=== PATIENT | female | born 1980 | race Caucasian/White ===

== ENCOUNTER 2019-01-24 06:00 | Outpatient (RCR) | payer OTHER, SELFPAY | END 2019-02-23 00:01 | LOC: SPT 06:00 | PROVIDERS: Family Provider Family Medicine; Visit Provider Family Medicine | DX: M54.5 Low back pain (principal); M54.2 Cervicalgia | CPT/HCPCS: 97110 ×5; 97112; 97140 ×5; 97164 ==

== ENCOUNTER 2019-02-24 06:00 | Outpatient (RCR) | payer OTHER, SELFPAY | END 2019-03-26 23:59 | disposition home or self-care (01) | LOC: SPT 06:00 | PROVIDERS: Family Provider Family Medicine; Referring Provider Family Medicine; Visit Provider Family Medicine | DX: M54.5 Low back pain (principal); M54.2 Cervicalgia | CPT/HCPCS: 97110; 97140 ==

== ENCOUNTER 2019-03-27 06:00 | Outpatient (RCR) | payer OTHER, SELFPAY | END 2019-04-24 23:59 | disposition home or self-care (01) | LOC: SPT 06:00 | PROVIDERS: Family Provider Family Medicine; PCP Family Medicine; Referring Provider Family Medicine; Visit Provider Family Medicine | DX: M54.5 Low back pain (principal); M54.2 Cervicalgia | CPT/HCPCS: 97110; 97112 ==

== ENCOUNTER 2019-04-25 06:00 | Outpatient (RCR) | payer OTHER, SELFPAY | END 2019-05-25 23:59 | disposition home or self-care (01) | LOC: SPT 06:00 | PROVIDERS: Family Provider Family Medicine; PCP Family Medicine; Referring Provider Family Medicine; Visit Provider Family Medicine | DX: M54.5 Low back pain (principal); M54.2 Cervicalgia | CPT/HCPCS: 97112; 97140 ==

== ENCOUNTER 2019-07-30 15:50 | Outpatient (CLI) | payer OTHER, SELFPAY ==
[2019-07-30 17:07] LABS: D Dimer 0.44 ug/mIFEU (0-0.59)
[2019-07-30 17:41] LABS: NT Pro B Type Natriuretic Pept 175 pg/mL (0-125)
== END 2019-07-30 15:51 | disposition home or self-care (01) ==
LOC: LAB 15:52
PROVIDERS: PCP Family Medicine; Visit Provider Family Medicine
DX: R06.02 Shortness of breath (principal)
CPT/HCPCS: 83880; 85378

== ENCOUNTER → 2019-12-23 08:14 | Outpatient (BNVA) | payer OTHER, SELFPAY | PROVIDERS: PCP Family Medicine; Referring Provider Family Medicine; Visit Provider Internal Medicine | DX: E11.40 Type 2 diabetes mellitus with diabetic neuropathy, unspecified (principal); E11.65 Type 2 diabetes mellitus with hyperglycemia; E66.01 Morbid (severe) obesity due to excess calories; Z68.43 Body mass index [BMI] 50.0-59.9, adult; E78.00 Pure hypercholesterolemia, unspecified; I10 Essential (primary) hypertension | CPT/HCPCS: 99204 ==

== ENCOUNTER → 2020-03-31 08:17 | Outpatient (BNVA) | payer OTHER, SELFPAY | PROVIDERS: PCP Family Medicine; Visit Provider Internal Medicine | DX: E11.40 Type 2 diabetes mellitus with diabetic neuropathy, unspecified (principal); E11.65 Type 2 diabetes mellitus with hyperglycemia; E66.01 Morbid (severe) obesity due to excess calories; Z68.43 Body mass index [BMI] 50.0-59.9, adult | CPT/HCPCS: 99214 ==

== ENCOUNTER 2020-09-18 10:23 | Outpatient (CLI) | payer BC, OTHER, SELFPAY ==
[2020-09-18 11:20] LABS: D Dimer 0.67 ug/mIFEU (0-0.59)
--- NOTE | 2020-09-18 15:34 | CT_ITS ---
WS: [id number] CTA OF THE CHEST WITH PULMONARY EMBOLISM PROTOCOL TECHNIQUE: High-resolution contrast enhanced CTA of the chest with coronal and sagittal reformatted i mages with pulmonary embolism protocol. MIP images are also reviewed. CLINICAL INFORMATION: ELEVATED D DIMER, COVID COMPARISON: None. DLP: 1880.[address] scans at [facility] use at least one of these dose optimization techniques: automat ed exposure control; mA and/or kV adjustment per patient size (includes targeted exams where dose is matched to clinical indication); or iterative reconstruction. FINDINGS: Study is limited due to breathing artifact and body habitus. Poor contrast bolus. Bolus attempted x2. Proximal main pulmonary arteries are normal. Segmental and subsegmental pulmonary arteries difficult to evaluate due to artifact. No evidence of proximal pulmonary embolus. Diffuse patchy groundglass infiltrates compatible with COVID 19 pneumonia. Multiple subpleural opacit ies in the mid and lower lungs bilaterally. Partial airspace consolidation in the left upper lobe francisco ng the fissure. Subpleural nodular opacities in the mid and lower lungs bilaterally with an unusual appearance. Some with feeding vessels which can be seen with septic emboli or microscopic emboli. This may be related to tiny thromboembolic phenomenon related to Covid 19 pneumonia. Fat attenuation lesion near the venita hepatis is nonspecific but likely due to focal fatty infiltrati on. Similar-appearing area within the left hepatic lobe anteriorly. This can be further evaluated wit h CT abdomen pelvis with contrast or ultrasound CT/CT angio chest PE protcl [id number] IMPRESSION: 1. Limited PE study. Distal pulmonary arteries not well evaluated. No evidence of proximal pulmonary embolus. 2. Patchy bilateral and subpleural groundglass infiltrates compatible with COV ID 19 pneumonia. 3. Subpleural nodular opacities in the mid and lower lungs bilaterally some wi th feeding vessels can be seen with septic emboli or microscopic emboli. Consid er thromboembolic sequelae related to Covid 19 pneumonia. 4. Focal fatty attenuation lesion at the venita hepatis measuring 8.0 x 5.6 cm most likely represents focal fatty infiltration but indeterminant. Similar-appe aring lesion in the anterior left hepatic lobe. This can be further evaluated w ith CT abdomen pelvis with contrast or ultrasound. Notified Dr Paz at 09/18/2020 4:40 PM.
[2020-09-18] MEDS: iohexol 350 mg/mL 100 mL Btl IV ×2 (15:58)
== END 2020-09-18 10:24 | disposition home or self-care (01) ==
LOC: LAB 10:30 → RAD 15:26
PROVIDERS: PCP Family Medicine; Visit Provider Nurse Practitioner Family
DX: U07.1 COVID-19 (principal); R79.89 Other specified abnormal findings of blood chemistry
CPT/HCPCS: 71275; 85378

== ENCOUNTER 2021-06-24 | Outpatient (RCR) | payer BC, SELFPAY | END 2021-07-24 23:59 | disposition home or self-care (01) | LOC: SPT | PROVIDERS: PCP Family Medicine; Referring Provider Family Medicine; Visit Provider Family Medicine | DX: M54.30 Sciatica, unspecified side (principal) | CPT/HCPCS: 20561; 97110; 97161 ==

== ENCOUNTER 2021-07-25 06:00 | Outpatient (RCR) | payer BC, SELFPAY | END 2021-08-23 23:59 | disposition home or self-care (01) | LOC: SPT 06:00 | PROVIDERS: PCP Family Medicine; Referring Provider Family Medicine; Visit Provider Family Medicine | DX: M54.30 Sciatica, unspecified side (principal) | CPT/HCPCS: 20560; 97110 ==

== ENCOUNTER 2021-12-21 21:20 | Emergency (ER) | payer BC, SELFPAY ==
[2021-12-21 21:54] VITALS: BP 144/86; PULSE 85; RESP 15; TEMP 36.8; O2SAT 97; BMI 54.7
[2021-12-21 23:01] VITALS: BP 146/74; PULSE 80; RESP 16; O2SAT 97
--- NOTE | 2021-12-21 23:39 | CTR_ITS ---
PROCEDURE INFORMATION: Exam: CT Abdomen And Pelvis With Contrast Exam date and time: 12/22/2021 1:16 AM Age: 41 years old Clinical indication: Vomiting; Prior surgery; Surgery date: 1-6 months; Surgery type: Bariatric surgery 10/10/2021; Additional info: Abd pain vomiting post bariatric SX TECHNIQUE: Imaging protocol: Computed tomography of the abdomen and pelvis with contrast. Radiation optimization: All CT scans at this facility use at least one of these dose optimization techniques: automated exposure control; mA and/or kV adjustment per patient size (includes targeted exams where dose is matched to clinical indication); or iterative reconstruction. Contrast material: OMNI 350; Contrast volume: 100 ml; Contrast route: INTRAVENOUS (IV); COMPARISON: CT abdomen pelvis w con* [id number] 12/22/2018 9:43 AM RADIATION DOSE METRICS: Total DLP (mGy-cm): 1411.23 FINDINGS: Liver: Normal. No mass. Gallbladder and bile ducts: Normal. No calcified stones. No ductal dilation. Pancreas: Normal. No ductal dilation. Spleen: One or more accessory splenules. Adrenal glands: Normal. No mass. Kidneys and ureters: Normal. No hydronephrosis. Stomach and bowel: Interval gastric bypass surgery with gastrojejunostomy. Appendix: No evidence of appendicitis. Intraperitoneal space: Unremarkable. No free air. No significant fluid collection. Vasculature: Unremarkable. No abdominal aortic aneurysm. Lymph nodes: Unremarkable. No enlarged lymph nodes. Urinary bladder: Unremarkable as visualized. Reproductive: Unremarkable as visualized. Bones/joints: Unremarkable. No acute fracture. Soft tissues: Unremarkable. CT/CT abdomen pelvis w con* [id number] IMPRESSION: Interval gastric bypass surgery with gastrojejunostomy.
[2021-12-21] MEDS: fluconazole 100 mg Tablet 150 MG PO (23:49)
[2021-12-22 00:41] LABS: Basophils # 0.1 10^3/uL (0.0-0.1); Basophils % 0.5 %; Eosinophils % 0.3 %; Hematocrit 38.7 % (37.0-47.0); Hemoglobin 12.1 g/dL (11.5-15.3); Lymphocytes % 24.9 %; Mean Corpuscular HGB Conc 31.3 g/dL (30.0-36.0); Mean Corpuscular Hemoglobin 22.7 pg (28.0-34.0); Mean Corpuscular Volume 72.5 fl (81-99); Mean Platelet Volume 11.2 fL (7.4-10.4); Monocytes # 0.8 10^3/uL (0.2-0.9); Monocytes % 6.6 %; Neutrophils % 67.4 %; Nucleated Red Blood Cells % 0 %; Platelet Count 443 10^3/cmm (130-400); Red Blood Count 5.34 10^6/uL (4.1-5.3); Red Cell Distribution Width 19.1 % (12.1-15.1)
[2021-12-22 01:11] VITALS: BP 152/79; PULSE 85; RESP 16; O2SAT 99
[2021-12-22 01:19] LABS: Add Urine Microscopic? NO; Charge for UA Resulting for Rev
--- NOTE | 2021-12-22 01:19 | PC.NURSE ---
REPORT GIVEN TO ABDULLAHI Sofia RN.
[2021-12-22 01:21] LABS: Bilirubin Urine Neg (Negative); Blood Urine Neg (Negative); Glucose Urine UA 4+ (Normal); Ketones Urine 3+ (Negative); Leukocyte Esterase Urine Negative (Negative); Nitrate Urine Negative (Negative); Protein Urine Neg (Negative); Urine Appearance Clear (CLEAR); Urine Color Yellow (Yellow); Urobilinogen Urine Neg (Negative); pH Urine 5 (5-7)
[2021-12-22 01:22] LABS: Alanine Aminotransferase 34 U/L (0-33); Albumin Level 3.9 g/dL (3.5-5.2); Alkaline Phosphatase 72 U/L (35-105); Anion Gap 20.8 (5-19); Blood Urea Nitrogen 6 mg/dL (6-20); Calcium 9.1 mg/dL (8.5-10.5); Carbon Dioxide 25 mmol/L (22-29); Chloride 94 mmol/L (98-107); Globulin 2.5 g/dL (1.3-4.6); Glomerular Filtration Rate 175.9 mL/min (90-130); Glucose 108 mg/dL (65-115); Lipase 26 U/L (13-60); Osmolality Calculated 280 mOsm/kg (285-295); Potassium 3.8 mmol/L (3.5-5.1); Sodium 136 mmol/L (136-145); Total Bilirubin 0.3 mg/dL (0.15-1.2); Total Protein 6.4 g/dL (6.6-8.7)
[2021-12-22 01:23] LABS: Aspartate Amino Transferase 26 U/L (0-32)
[2021-12-22] MEDS: sodium chloride 0.9% 1,000 ML 999 ML IV (02:20)
[2021-12-22 02:55] VITALS: BP 148/72; PULSE 88; RESP 16; O2SAT 99
--- NOTE | 2021-12-22 03:24 | ED_ITS ---
HPI - Nausea/Vomiting/Diarrhea General: Chief complaint: Nausea/Vomiting/Diarrhea Stated complaint: n/v post op Time Seen by Provider: 12/21/21 23:22 Source: patient History of Present Illness: 41-year-old female who recently had bariatric surgery 2 months ago. She did well until a few days ago, when she began to vomit. She has had episodes of vomiting, even with liquid at times, for the past few days. She has had some mild to moderate right upper quadrant pain radiating to her back on and off. No fever. No diarrhea. No blood in the vomitus. She talked to her surgeon today, and they were concerned about the possibility of a bowel obstruction. MD elicited complaint: nausea and vomiting Pertinent past history: other Onset (ago): day(s) Description of vomiting: watery Associated nausea: Yes Associated abdominal pain: Yes Location of pain: RUQ Pain consistency: intermittent Severity: moderate Exacerbating factors: eating Relieving factors: none Associated symtoms: Reports nausea; Denies altered mental status, chest pain, cough, dysuria, fevers/chills or short of breath Review of Systems Const: Denies: fever(s) Card: Denies: chest pain Resp: Denies: dyspnea, productive cough or non-productive cough GI: Reports: abdominal pain, nausea and vomiting; Denies: diarrhea, hematochezia or melena : Denies: dysuria PFSH ED PFSH: Medical History Hypercholesteremia Hypertension PTSD (post-traumatic stress disorder) Type II diabetes mellitus Surgical History History of hysterectomy History of tonsillectomy and adenoidectomy Family History Father Diabetes Grandmother Diabetes Social History Smoking and tobacco status: never smoked Alcohol intake: never Lives independently: No Household members: spouse and children Marital status: Female Reproductive History: Date of last menstrual period: 12/07/21 Physical Exam Const: COMMON NORMALS: no acute distress EXAM LIMITATIONS: no altered mental status GENERAL APPEARANCE: cooperative; not ill appearing and not frail appearing HENMT: COMMON NORMALS: normocephalic, atraumatic and Normal external nose present HEAD & SCALP: normocephalic and atraumatic FACE & SINUS: normal facial exam and face symmetric NOSE: Normal external nose present Eye: COMMON NORMALS: Equal, round and reactive pupils present and EOMs intact bilaterally PUPIL: Yes Equal, round and reactive pupils present Neck/C-Spine: GENERAL: Yes trachea midline Chest: CHEST: Yes Symmetrical chest wall rise Resp: COMMON NORMALS: normal respiratory effort, No retractions, No use of accessory muscles and clear to auscultation bilaterally AUSCULTATION: clear to auscultation bilaterally Cardio: COMMON NORMALS: regular rate and regular rhythm RATE: regular rate RHYTHM: regular rhythm GI: COMMON NORMALS: Normal to inspection, nondistended, normoactive bowel sounds present PALPATION: Yes Tenderness to palpation present (GI) Details: RUQ (Mild) Extremity: COMMON NORMALS: no pedal edema Neuro: GIN COMA SCALE: document GCS findings Gin coma scale eye opening: Spontaneous [place] coma scale verbal response: Orientated Gin coma scale motor response: Obey commands [place] coma scale total score: 15 SENSORY EXAM: Yes extremities (intact) Psych: COMMON NORMALS: speech normal SPEECH: Yes normal speech Skin: COMMON NORMALS: no rashes or lesions noted GENERAL SKIN EXAM: no rashes or lesions noted Course Vital Signs: Vital signs: Vital Signs Temperature 98.3 F 12/21/21 21:54 Pulse Rate 88 12/22/21 02:55 Respiratory Rate 16 12/22/21 02:55 Blood Pressure 148/72 12/22/21 02:55 Pulse Oximetry 99 12/22/21 02:55 Oxygen Delivery Wy thod 12/22/21 01:11 MDM - Nausea/Vomiting/Diarrhea Medical Decision Making This patient's vitals are normal. She has minimal pain. Her white blood cell count is 12. Her hemoglobin is 12. Her laboratory otherwise is not remarkable. Urinalysis shows 3+ ketones. She is given [address] of the abdomen shows interval gastric bypass surgery with gastro jejunostomy without complication. Gallbladder, bile ducts, and appendix are normal. She has not vomited here. She will be allowed home with Premeal Zofran for symptom control. Lab Data : 12/22/21 00:30 12/22/21 00:30 Radiology Impressions Abdomen/Pelvis CT 12/21/21 23:39 IMPRESSION: Interval gastric bypass surgery with gastrojejunostomy. Laboratory Results WBC 12.0 10^3/uL (4.0-10.0) H 12/22/21 00:30 RBC 5.34 10^6/uL (4.1-5.3) H 12/22/21 00:30 Hgb 12.1 g/dL (11.5-15.3) 12/22/21 00:30 Hct 38.7 % (37.0-47.0) 12/22/21 00:30 MCV 72.5 fl (81-99) L 12/22/21 00:30 MCH 22.7 pg (28.0-34.0) L 12/22/21 00:30 MCHC 31.3 g/dL (30.0-36.0) 12/22/21 00: RDW 19.1 % (12.1-15.1) H 12/22/21 00:30 Plt Count 443 10^3/cmm (130-400) H 12/22/21 00:30 MPV 11.2 fL (7.4-10.4) H 12/22/21 00:30 Neut % (Auto) 67.4 % 12/22/21 00:30 Lymph % (Auto) 24.9 % 12/22/21 00:30 [place] % (Auto) 6.6 % 12/22/21 00:30 Eos % (Auto) 0.3 % 12/22/21 00:30 Baso % (Auto) 0.5 % 12/22/21 00:30 Neut # (Auto) 8.10 10^3/uL (1.8-7.7) H 12/22/21 00:30 Lymph # (Auto) 3.0 10^3/uL (0.8-4.8) 12/22/21 00:30 [place] # (Auto) 0.8 10^3/uL (0.2-0.9) 12/22/21 00:30 Eos # (Auto) 0.0 10^3/uL (0.0-0.8) 12/22/21 00:30 Baso # (Auto) 0.1 10^3/uL (0.0-0.1) 12/22/21 00:30 Nucleated RBC % (auto) 0 % 12/22/21 00: Nucleated RBCs # 0.0 /100WBC 12/22/21 00:30 Sodium 136 mmol/L (136-145) 12/22/21 00: Potassium 3.8 mmol/L (3.5-5.1) 12/22/21: Chloride 94 mmol/L (98-107) L 12/22/21: Carbon Dioxide 25 mmol/L (22-29) 12/22/21: Anion Gap 20.8 (5-19) H 12/22/21:30 BUN 6 mg/dL (6-20) 12/22/21 00:30 Creatinine 0.4 mg/dL (0.5-0.9) L 12/22/21: GFR Calculation 175.9 mL/min (90-130) H 12/22/21: Glucose 108 mg/dL (65-115) 12/22/21: Calculated Osmolality 280 mOsm/kg (285-295) L 12/22/21: Calcium 9.1 mg/dL (8.5-10.5) 12/22/21 00: Total Bilirubin 0.3 mg/dL (0.15-1.2) 12/22/21 00:30 AST 26 U/L (0-32) 12/22/21 00:30 ALT 34 U/L (0-33) H 12/22/21 00: Alkaline Phosphatase 72 U/L (35-105) 12/22/21: Total Protein 6.4 g/dL (6.6-8.7) L 12/22/21: Albumin 3.9 g/dL (3.5-5.2) 12/22/21 00: Globulin 2.5 g/dL (1.3-4.6) 12/22/21 00: Lipase 26 U/L (13-60) 12/22/21 00:30 Urine Color Yellow (Yellow) 12/22/21 01:15 Urine Appearance Clear (CLEAR) 12/22/21 01:15 Urine pH 5 (5-7) 12/22/21 01:15 Ur Specific [place] 1.010 (1.005-1.030) 12/22/21 01:15 Urine Protein Neg (Negative) 12/22/21 01:15 Urine Glucose (UA) 4+ (Normal) H 12/22/21 01:15 Urine Ketones 3+ (Negative) H 12/22/21 01:15 Urine Blood Neg (Negative) 12/22/21 01:15 Urine Nitrate Negative (Negative) 12/22/21 01:15 Urine Bilirubin Neg (Negative) 12/22/21 01:15 Urine Urobilinogen Neg mg/dL (Negative) 12/22/21 01:15 Ur Leukocyte Esterase Negative (Negative) 12/22/21 01:15 Discharge Plan Discharge Patient Disposition: Home Clinical Impression: Vomiting Condition: Stable Prescriptions: New ondansetron 4 mg film 4 mg PO DAILY PRN (Reason: nausea and vomiting) Qty: 30 0RF Discontinued ondansetron HCl [Zofran] 4 mg tablet 4 mg PO Q8H No Action metformin 500 mg tablet extended release 24hr 500 mg PO BID losartan 100 mg tablet 100 mg PO DAILY famotidine 20 mg tablet 20 mg PO DAILY topiramate [Topamax] 100 mg tablet 100 mg PO BID Farxiga 10 mg tablet 10 mg PO DAILY Qty: 90 2RF Toujeo SoloStar U-300 Insulin 300 unit/mL (1.5 mL) insulin pen 150 unit SUBCUT DAILY 90 Days Qty: 4.5 2RF Ozempic 1 mg/dose (4 mg/3 mL) pen injector 1 mg SUBCUT .ONCE A WEEK 90 Days Qty: 9 2RF Rx Instructions: 340 B pricing: requesting 3months w 2 rf insulin lispro [Humalog KwikPen Insulin] 100 unit/mL insulin pen 35 unit SUBCUT TID Qty: 45 2RF buspirone 5 mg tablet 5 mg PO BID venlafaxine [Effexor XR] 75 mg capsule,extended release 24hr 75 mg PO DAILY venlafaxine [Effexor XR] 150 mg capsule,extended release 24hr 150 mg PO DAILY atorvastatin 40 mg tablet 40 mg PO DAILY fluconazole [Diflucan] 150 mg tablet 150 mg PO DAILY 2 Days Qty: 2 0RF Rx Instructions: Take one tablet today and one in 7 days. Discharge Orders: Discharge ED (Routine); Ordered 12/22/21 Ordered By: Pablito Rivera Referrals: Bay Daniel MD [Primary Care Provider] - 4-7 days Patient Instructions: Vomiting - Adult Activity Restrictions/Additional Instructions: Medication 30 minutes prior to eating, scheduled for the next 5 days, then as needed. Return for worsening pain, fever, vomiting liquids despite treatment, any other concerning symptoms. Call your surgeon on Friday, and let them know you were here, and what was seen Coding Level of Care Code ED Phlebotomist Prn for Moses Romero
== END 2021-12-22 02:57 | disposition home or self-care (01) ==
PROVIDERS: Emergency Provider Emergency Medicine; PCP Family Medicine
DX: R11.11 Vomiting without nausea (principal); Z79.4 Long term (current) use of insulin; I10 Essential (primary) hypertension; E11.9 Type 2 diabetes mellitus without complications
CPT/HCPCS: 74177; 80053; 81003; 83690; 85025; 96360; 99285; J7030; Q9967

== ENCOUNTER 2021-12-24 11:30 | Oncology outpatient (recurring) (ONCR) | payer BC, SELFPAY ==
[2021-12-24 13:21] LABS: Basophils % 0.3 %; Eosinophils % 0.3 %; Hemoglobin 12.6 g/dL (11.5-15.3); Lymphocytes % 16.5 %; Mean Corpuscular Hemoglobin 22.1 pg (28.0-34.0); Mean Corpuscular Volume 73.8 fl (81-99); Mean Platelet Volume 10.9 fL (7.4-10.4); Monocytes # 0.8 10^3/uL (0.2-0.9); Monocytes % 6.1 %; Neutrophils # 9.42 10^3/uL (1.8-7.7); Neutrophils % 76.5 %; Nucleated Red Blood Cells % 0 %; Platelet Count 464 10^3/cmm (130-400); Red Blood Count 5.69 10^6/uL (4.1-5.3); Red Cell Distribution Width 19.9 % (12.1-15.1); White Blood Count 12.3 10^3/uL (4.0-10.0)
[2021-12-24 13:50] LABS: Ferritin 22 ng/mL (15-150); Iron 34 ug/dL (37-145); Percent Saturation 11.3 % (20-50); Total Iron Binding Capacity 300 mcg/dl; Unsaturated Iron Binding 266 ug/dL (112-347)
[2021-12-24 13:59] LABS: LAB Peripheral Smear Sent for Review
[2021-12-24 14:02] LABS: Vitamin B12 829 pg/mL (232-1245)
== END 2021-12-24 23:59 | disposition home or self-care (01) ==
PROVIDERS: PCP Family Medicine; Visit Provider Internal Medicine Medical Oncology
DX: D64.9 Anemia, unspecified (principal); D72.829 Elevated white blood cell count, unspecified
CPT/HCPCS: 82607; 82728; 83540; 83550; 85025; 88374

== ENCOUNTER 2022-02-04 10:55 | Outpatient (CLI) | payer BC, SELFPAY ==
--- NOTE | 2022-02-04 10:59 | MM_ITS ---
WS: [id number] Bilateral screening 3D tomosynthesis digital mammogram, 02/04/2022 Clinical Data: SCREENING Comparison: None. Findings: The breast parenchymal pattern shows fibroglandular tissue. No spiculated masses or clustered calcif ications are seen. There are no secondary signs of carcinoma. There are 2 nodules each approximately 1.4 cm in the central portion of the right breast which have no calcifications. Both nodules have smo oth borders. The left breast is normal. MM/[place] [id number] Impression: 1. 2 nodules in the upper central portion right breast at the 12 to 1:00 posit ion measuring 1.4 cm. 2. Recommend right breast ultrasound. 3. Negative left breast. BIRADS: 0-Incomplete: Need additional imaging evaluation FOLLOW UP: See Report The CAD aircraft shipping checker was used.
== END 2022-02-04 10:56 | disposition home or self-care (01) ==
PROVIDERS: PCP Family Medicine; Visit Provider Family Medicine
DX: Z12.31 Encounter for screening mammogram for malignant neoplasm of breast (principal)
CPT/HCPCS: 77063; 77067

== ENCOUNTER 2022-02-21 10:04 | Outpatient (CLI) | payer BC, SELFPAY ==
--- NOTE | 2022-02-21 10:08 | NM_ITS ---
WS: [id number] NUCLEAR MEDICINE HIDA SCAN CLINICAL INFORMATION: NAUSEA TECHNIQUE: Following intravenous administration of 7.2 mCi of technetium 99m mebrofenin, images of th e abdomen were obtained over the course of 60 minutes. Next, gallbladder ejection fraction was determ ined by obtaining preprandial and one-hour postprandial images of the gallbladder following oral jennifer stion of Ensure. COMPARISON: CT December 22, 2021 FINDINGS: History of prior gastric bypass Normal hepatic uptake at 5 minutes. Hepatomegaly. Gallbladder is visualized by 50 minutes. Normal com mon bile duct and small bowel activity. Normal hepatic excretion. No evidence of acute cholecystitis. Gallbladder ejection fraction demonstrates no significant emptying at 63 minutes. Findings compatible with gallbladder dysfunction and suspicious for chronic cholecystitis. NM/NM hepatobiliary w phar* [id number] IMPRESSION: No significant gallbladder emptying. Findings compatible with gallbladder dysfu nction and suspicious for chronic cholecystitis.
== END 2022-02-21 10:05 | disposition home or self-care (01) ==
LOC: RAD 10:05
PROVIDERS: PCP Family Medicine; Visit Provider Physician Assistant
DX: R11.0 Nausea (principal)
CPT/HCPCS: 78227; A9537

== ENCOUNTER 2022-02-21 13:00 | Oncology outpatient (recurring) (ONCR) | payer BC, SELFPAY ==
[2022-02-01 09:04] LABS: Basophils % 0.3 %; Eosinophils % 0.2 %; Hematocrit 40.3 % (37.0-47.0); Hemoglobin 12.3 g/dL (11.5-15.3); Lymphocytes # 2.5 10^3/uL (0.8-4.8); Lymphocytes % 19.9 %; Mean Corpuscular HGB Conc 30.5 g/dL (30.0-36.0); Mean Corpuscular Hemoglobin 22.3 pg (28.0-34.0); Mean Corpuscular Volume 73.1 fl (81-99); Mean Platelet Volume 10.4 fL (7.4-10.4); Monocytes # 0.7 10^3/uL (0.2-0.9); Monocytes % 5.4 %; Neutrophils # 9.25 10^3/uL (1.8-7.7); Neutrophils % 73.9 %; Nucleated Red Blood Cells % 0 %; Platelet Count 488 10^3/cmm (130-400); Red Blood Count 5.51 10^6/uL (4.1-5.3); White Blood Count 12.5 10^3/uL (4.0-10.0)
[2022-02-01 09:23] LABS: Iron 29 ug/dL (37-145); Percent Saturation 8.9 % (20-50); Total Iron Binding Capacity 324 mcg/dl; Unsaturated Iron Binding 295 ug/dL (112-347)
[2022-02-01 09:41] LABS: LAB Peripheral Smear Sent for Review
[2022-02-14] MEDS: sodium chloride 0.9% 250 ML 50 ML IV (10:32)
[2022-02-14] MEDS: ferric carboxy (IVPB) 750 MG in sodium chloride 0.9% (100 ml) 100 ML 345 MG IV (10:33)
[2022-02-14 11:21] VITALS: BP 126/79; PULSE 71; RESP 16; TEMP 35.9; O2SAT 98
[2022-02-21] MEDS: ferric carboxy (IVPB) 750 MG in sodium chloride 0.9% (100 ml) 100 ML 345 MG IV (13:35)
[2022-02-21 14:05] VITALS: BP 120/76; PULSE 74; RESP 16; TEMP 36.1; O2SAT 96
== END 2022-02-23 23:59 | disposition home or self-care (01) ==
PROVIDERS: PCP Family Medicine; Visit Provider Internal Medicine Medical Oncology
DX: D64.9 Anemia, unspecified (principal); D72.829 Elevated white blood cell count, unspecified; D50.8 Other iron deficiency anemias
CPT/HCPCS: 83540; 83550; 85025; 96365; J1439; J7050

== ENCOUNTER 2022-02-22 12:43 | Outpatient (CLI) | payer BC, SELFPAY ==
--- NOTE | 2022-02-22 12:51 | US_ITS ---
WS: [id number] Right breast ultrasound, 02/22/2022 Clinical Data: NODULES IN RT BREAST Comparison: Mammogram, 02/04/2022 Findings: In the 1:00 position 7 cm from the nipple there is a complex cyst. The cyst has numerous septations b ut a distinct border. It measures 0.79 x 0.93 x 1.06 cm. No other lesions are seen. US/US breast RT limited* [id number] Impression: 1. Complex cyst of the right breast at 1:00 7 cm from the nipple corresponding to the mass noted on ultrasound. 2. Recommend return to annual screening mammograms. BIRADS: 2-Benign FOLLOW UP: See Report
== END 2022-02-22 12:44 | disposition home or self-care (01) ==
LOC: RAD 12:45
PROVIDERS: PCP Family Medicine; Visit Provider Family Medicine
DX: N60.01 Solitary cyst of right breast (principal)
CPT/HCPCS: 76642

== ENCOUNTER 2022-04-01 15:57 | Oncology outpatient (recurring) (ONCR) | payer BC, SELFPAY ==
[2022-04-01 16:51] LABS: Basophils % 0.3 %; Eosinophils # 0.1 10^3/uL (0.0-0.8); Eosinophils % 0.6 %; Hematocrit 45.9 % (37.0-47.0); Hemoglobin 14.2 g/dL (11.5-15.3); Lymphocytes % 23.3 %; Mean Corpuscular HGB Conc 30.9 g/dL (30.0-36.0); Mean Corpuscular Hemoglobin 23.9 pg (28.0-34.0); Mean Corpuscular Volume 77.4 fl (81-99); Mean Platelet Volume 10.8 fL (7.4-10.4); Monocytes # 0.8 10^3/uL (0.2-0.9); Monocytes % 5.8 %; Neutrophils # 9.06 10^3/uL (1.8-7.7); Neutrophils % 69.8 %; Nucleated Red Blood Cells % 0 %; Platelet Count 437 10^3/cmm (130-400); Red Blood Count 5.93 10^6/uL (4.1-5.3); Red Cell Distribution Width 20.7 % (12.1-15.1)
[2022-04-01 17:37] LABS: Ferritin 318 ng/mL (15-150); Iron 41 ug/dL (37-145)
[2022-04-01 17:39] LABS: Percent Saturation 12.6 % (20-50); Total Iron Binding Capacity 325 mcg/dl; Unsaturated Iron Binding 284 ug/dL (112-347)
== END 2022-04-23 23:59 | disposition home or self-care (01) ==
PROVIDERS: PCP Family Medicine; Visit Provider Internal Medicine Medical Oncology
DX: D50.8 Other iron deficiency anemias (principal)
CPT/HCPCS: 36415; 82728; 83540; 83550; 85025

== ENCOUNTER 2022-05-06 13:32 | Outpatient (CLI) | payer BC, SELFPAY ==
[2022-05-06 14:13] LABS: Erythrocyte Sedimentation Rate 14 mm/hr (0-15)
[2022-05-06 14:31] LABS: C Reactive Protein 7.5 mg/L (0.0-4.9); Ferritin 180 ng/mL (15-150); Iron 42 ug/dL (37-145); Percent Saturation 15.3 % (20-50); Total Iron Binding Capacity 274 mcg/dl; Unsaturated Iron Binding 232 ug/dL (112-347)
[2022-05-16 23:00] LABS: CALR Exon 9 Mutation NOT DETECTED (NOT DETECTED); CSF3R Exon 14/17 Mutation NOT DETECTED (NOT DETECTED); JAK2 Exon 12 Mutation NOT DETECTED (NOT DETECTED); JAK2 V617 Block Specimen ID NG; JAK2 V617 Clinical Indication NG; JAK2 V617 Mutation NOT DETECTED (NOT DETECTED); JAK2 V617 Specimen Source BLOOD; MPL Exon 12 Mutation NOT DETECTED (NOT DETECTED)
== END 2022-05-06 13:33 | disposition home or self-care (01) ==
PROVIDERS: PCP Family Medicine; Visit Provider Internal Medicine Medical Oncology
DX: D72.829 Elevated white blood cell count, unspecified (principal); E61.1 Iron deficiency; D75.1 Secondary polycythemia
CPT/HCPCS: 36415; 81219; 81270; 81339; 81403; 81479; 82728; 83540; 83550; 85651; 86140

== ENCOUNTER 2022-06-10 09:10 | Oncology outpatient (recurring) (ONCR) | payer BC, SELFPAY ==
[2022-06-10 09:57] LABS: Basophils # 0.1 10^3/uL (0.0-0.1); Basophils % 0.4 %; Eosinophils # 0.1 10^3/uL (0.0-0.8); Eosinophils % 0.4 %; Hematocrit 45.1 % (37.0-47.0); Hemoglobin 13.9 g/dL (11.5-15.3); Lymphocytes # 2.8 10^3/uL (0.8-4.8); Lymphocytes % 21.8 %; Mean Corpuscular HGB Conc 30.8 g/dL (30.0-36.0); Mean Corpuscular Hemoglobin 24.9 pg (28.0-34.0); Mean Corpuscular Volume 80.8 fl (81-99); Mean Platelet Volume 10.6 fL (7.4-10.4); Monocytes # 0.7 10^3/uL (0.2-0.9); Monocytes % 5.4 %; Neutrophils # 9.26 10^3/uL (1.8-7.7); Neutrophils % 71.7 %; Nucleated Red Blood Cells % 0 %; Platelet Count 403 10^3/cmm (130-400); Red Blood Count 5.58 10^6/uL (4.1-5.3); Red Cell Distribution Width 14.9 % (12.1-15.1); White Blood Count 12.9 10^3/uL (4.0-10.0)
[2022-06-10 10:08] LABS: Erythrocyte Sedimentation Rate 36 mm/hr (0-15)
[2022-06-10 10:26] LABS: Alanine Aminotransferase 22 U/L (0-33); Albumin Level 4.2 g/dL (3.5-5.2); Alkaline Phosphatase 67 U/L (35-105); Aspartate Amino Transferase 21 U/L (0-32); Blood Urea Nitrogen 10 mg/dL (6-20); C Reactive Protein 8.6 mg/L (0.0-4.9); Calcium 8.9 mg/dL (8.5-10.5); Carbon Dioxide 23 mmol/L (22-29); Chloride 99 mmol/L (98-107); Globulin 2.8 g/dL (1.3-4.6); Glomerular Filtration Rate 175.9 mL/min (90-130); Glucose 107 mg/dL (65-115); Iron 44 ug/dL (37-145); Osmolality Calculated 276 mOsm/kg (285-295); Percent Saturation 14.4 % (20-50); Sodium 133 mmol/L (136-145); Total Bilirubin 0.2 mg/dL (0.15-1.2); Total Iron Binding Capacity 304 mcg/dl; Unsaturated Iron Binding 260 ug/dL (112-347)
[2022-06-10 10:31] LABS: Anion Gap 14.4 (5-19); Potassium 3.4 mmol/L (3.5-5.1)
[2022-06-10 11:20] LABS: Ferritin 163 ng/mL (15-150)
[2022-06-10 19:17] LABS: Thyroid Stimulating Hormone 1.45 uIU/mL (0.27-4.20)
== END 2022-06-23 23:59 | disposition home or self-care (01) ==
PROVIDERS: Nurse Practitioner Family; PCP Family Medicine; Visit Provider Internal Medicine Medical Oncology
DX: D50.8 Other iron deficiency anemias (principal); D72.829 Elevated white blood cell count, unspecified; R53.83 Other fatigue; D75.1 Secondary polycythemia
CPT/HCPCS: 36415; 80053; 82728; 83540; 83550; 84443; 85025; 85651; 86140

== ENCOUNTER → 2022-06-25 09:32 | Outpatient (BNVA) | payer BC, SELFPAY | PROVIDERS: PCP Family Medicine; Visit Provider Podiatrist Foot & Ankle Surgery | DX: E11.8 Type 2 diabetes mellitus with unspecified complications (principal); M21.612 Bunion of left foot; M21.611 Bunion of right foot; M72.2 Plantar fascial fibromatosis; Z79.84 Long term (current) use of oral hypoglycemic drugs | CPT/HCPCS: 73630 ==

== ENCOUNTER 2022-07-15 14:04 | Oncology outpatient (recurring) (ONCR) | payer BC, SELFPAY ==
[2022-07-15 14:51] LABS: Basophils # 0.1 10^3/uL (0.0-0.1); Basophils % 0.4 %; Eosinophils # 0.1 10^3/uL (0.0-0.8); Eosinophils % 0.6 %; Hematocrit 43.7 % (37.0-47.0); Hemoglobin 13.9 g/dL (11.5-15.3); Lymphocytes # 3.5 10^3/uL (0.8-4.8); Mean Corpuscular HGB Conc 31.8 g/dL (30.0-36.0); Mean Corpuscular Hemoglobin 25.7 pg (28.0-34.0); Mean Corpuscular Volume 80.8 fl (81-99); Mean Platelet Volume 10.3 fL (7.4-10.4); Monocytes # 0.7 10^3/uL (0.2-0.9); Monocytes % 6.1 %; Neutrophils # 7.33 10^3/uL (1.8-7.7); Neutrophils % 62.6 %; Nucleated Red Blood Cells % 0 %; Platelet Count 380 10^3/cmm (130-400); Red Blood Count 5.41 10^6/uL (4.1-5.3); White Blood Count 11.7 10^3/uL (4.0-10.0)
[2022-07-15 15:15] LABS: Alanine Aminotransferase 17 U/L (0-33); Albumin Level 4.1 g/dL (3.5-5.2); Alkaline Phosphatase 56 U/L (35-105); Anion Gap 18.4 (5-19); Aspartate Amino Transferase 12 U/L (0-32); Blood Urea Nitrogen 11 mg/dL (6-20); Calcium 8.8 mg/dL (8.5-10.5); Carbon Dioxide 20 mmol/L (22-29); Chloride 105 mmol/L (98-107); Ferritin 172 ng/mL (15-150); Globulin 2.6 g/dL (1.3-4.6); Glucose 92 mg/dL (65-115); Iron 66 ug/dL (37-145); Osmolality Calculated 289 mOsm/kg (285-295); Percent Saturation 23.3 % (20-50); Potassium 3.4 mmol/L (3.5-5.1); Sodium 140 mmol/L (136-145); Total Bilirubin 0.2 mg/dL (0.15-1.2); Total Iron Binding Capacity 283 mcg/dl; Total Protein 6.7 g/dL (6.6-8.7); Unsaturated Iron Binding 217 ug/dL (112-347)
== END 2022-07-24 23:59 | disposition home or self-care (01) ==
PROVIDERS: Nurse Practitioner Family; PCP Family Medicine; Visit Provider Internal Medicine Medical Oncology
DX: D50.8 Other iron deficiency anemias (principal); D75.1 Secondary polycythemia
CPT/HCPCS: 36415; 80053; 82728; 83540; 83550; 85025

== ENCOUNTER → 2022-07-25 15:39 | Outpatient (BNVA) | payer BC, SELFPAY | PROVIDERS: PCP Family Medicine; Visit Provider Emergency Medicine | DX: R39.9 Unspecified symptoms and signs involving the genitourinary system (principal); N10 Acute pyelonephritis | CPT/HCPCS: 81000 ==

== ENCOUNTER 2022-08-06 11:13 | Outpatient (CLI) | payer BC, SELFPAY | END 2022-08-06 11:14 | disposition home or self-care (01) | LOC: SPT 11:14 | PROVIDERS: PCP Family Medicine; Visit Provider Podiatrist Foot & Ankle Surgery | DX: Z46.89 Encounter for fitting and adjustment of other specified devices (principal); M72.2 Plantar fascial fibromatosis; E11.8 Type 2 diabetes mellitus with unspecified complications | CPT/HCPCS: 97760; L3030 ==

== ENCOUNTER → 2022-09-25 16:46 | Outpatient (BNVA) | payer BC, SELFPAY | PROVIDERS: PCP Family Medicine; Visit Provider Nurse Practitioner Family | DX: R39.9 Unspecified symptoms and signs involving the genitourinary system (principal) | CPT/HCPCS: 81000; 87086 ==

== ENCOUNTER 2022-11-25 08:47 | Oncology outpatient (recurring) (ONCR) | payer BC, SELFPAY ==
[2022-11-25 08:56] VITALS: BP 111/71; PULSE 68; RESP 16; TEMP 35.8; O2SAT 96
[2022-11-25 09:21] LABS: Basophils % 0.4 %; Eosinophils % 0.4 %; Hematocrit 44.4 % (36-47); Lymphocytes # 2.3 10^3/uL (0.8-4.8); Lymphocytes % 21.8 %; Mean Corpuscular Hemoglobin 26.3 pg (27-33); Mean Corpuscular Volume 82.2 fl (85-98); Mean Platelet Volume 10.9 fL (7.4-10.4); Monocytes # 0.6 10^3/uL (0.2-0.9); Monocytes % 5.7 %; Neutrophils # 7.59 10^3/uL (1.8-7.7); Neutrophils % 71.4 %; Nucleated Red Blood Cells % 0 %; Platelet Count 328 10^3/cmm (157-399); Red Cell Distribution Width 12.4 % (12.1-15.1); White Blood Count 10.62 10^3/uL (3.29-11.43)
[2022-11-25 09:29] LABS: Alanine Aminotransferase 20 U/L (0-33); Albumin Level 4.3 g/dL (3.5-5.2); Alkaline Phosphatase 59 U/L (35-105); Anion Gap 14.5 (5-19); Aspartate Amino Transferase 15 U/L (0-32); Blood Urea Nitrogen 14 mg/dL (6-20); Carbon Dioxide 21 mmol/L (22-29); Chloride 108 mmol/L (98-107); Ferritin 107 ng/mL (15-150); Globulin 2.6 g/dL (1.3-4.6); Glucose 100 mg/dL (65-115); Iron 92 ug/dL (37-145); Osmolality Calculated 289 mOsm/kg (285-295); Percent Saturation 31.5 % (20-50); Potassium 4.5 mmol/L (3.5-5.1); Sodium 139 mmol/L (136-145); Total Bilirubin 0.3 mg/dL (0.15-1.2); Total Iron Binding Capacity 292 mcg/dl; Total Protein 6.9 g/dL (6.6-8.7); Unsaturated Iron Binding 200 ug/dL (112-347)
== END 2022-12-24 23:59 | disposition home or self-care (01) ==
PROVIDERS: Nurse Practitioner Family; PCP Family Medicine; Visit Provider Internal Medicine Medical Oncology
DX: D50.8 Other iron deficiency anemias (principal); D64.9 Anemia, unspecified; D72.829 Elevated white blood cell count, unspecified; I10 Essential (primary) hypertension; E78.5 Hyperlipidemia, unspecified; E11.9 Type 2 diabetes mellitus without complications
CPT/HCPCS: 36415; 80053; 82728; 83540; 83550; 85025

== ENCOUNTER 2023-03-03 08:23 | Outpatient (CLI) | payer BC, SELFPAY ==
--- NOTE | 2023-03-03 08:26 | MM_ITS ---
WS: [id number] BILATERAL SCREENING DIGITAL TOMOSYNTHESIS MAMMOGRAM WITH CAD HISTORY: SCREENING COMPARISON: 02/04/2022 Bilateral CC and MLO views with tomosynthesis and synthetic mammography submitted. Computer aided det ection analyzed. Breast composition: The breasts are heterogeneously dense, which may obscure small masses. No suspici ous masses, microcalcifications or architectural distortion. Reidentified is the focal masslike asymm etry in the posterior RIGHT breast just medial to the nipple line measuring 1.6 x 1.1 cm. No increase in size suggesting this is benign. This may be an area of fibrocystic disease. Ultrasound demonstrat ed multiple small cystic lesions in this area. LEFT breast is negative. IMPRESSION: MM/[place] [id number] BI-RADS: 2-Benign FOLLOW UP: 1 Year Follow-up
== END 2023-03-03 08:24 | disposition home or self-care (01) ==
LOC: RAD 08:24
PROVIDERS: PCP Family Medicine; Visit Provider Family Medicine
DX: Z12.31 Encounter for screening mammogram for malignant neoplasm of breast (principal)
CPT/HCPCS: 77063; 77067

== ENCOUNTER 2023-03-03 10:34 | Oncology outpatient (recurring) (ONCR) | payer BC, SELFPAY ==
[2023-03-03 10:52] VITALS: BP 138/84; PULSE 69; RESP 18; TEMP 36.9; O2SAT 99
[2023-03-03 11:12] LABS: Basophils % 0.4 %; Eosinophils % 0.4 %; Hematocrit 41.6 % (36-47); Lymphocytes % 32.7 %; Mean Corpuscular Hemoglobin 26.3 pg (27-33); Mean Corpuscular Volume 82.4 fl (85-98); Mean Platelet Volume 10.7 fL (7.4-10.4); Monocytes # 0.6 10^3/uL (0.2-0.9); Monocytes % 6.3 %; Neutrophils # 5.39 10^3/uL (1.8-7.7); Nucleated Red Blood Cells % 0 %; Platelet Count 342 10^3/cmm (157-399); Red Blood Count 5.05 10^6/uL (3.85-5.65); Red Cell Distribution Width 12.5 % (12.1-15.1); White Blood Count 9.01 10^3/uL (3.29-11.43)
[2023-03-03 11:31] LABS: Alanine Aminotransferase 34 U/L (0-33); Albumin Level 4.1 g/dL (3.5-5.2); Alkaline Phosphatase 55 U/L (35-105); Anion Gap 16.9 (5-19); Aspartate Amino Transferase 31 U/L (0-32); Blood Urea Nitrogen 15 mg/dL (6-20); Carbon Dioxide 22 mmol/L (22-29); Chloride 103 mmol/L (98-107); Ferritin 49 ng/mL (15-150); Globulin 2.7 g/dL (1.3-4.6); Glomerular Filtration Rate 135.3 mL/min (90-130); Glucose 97 mg/dL (65-115); Iron 89 ug/dL (37-145); Osmolality Calculated 287 mOsm/kg (285-295); Percent Saturation 29.7 % (20-50); Potassium 3.9 mmol/L (3.5-5.1); Sodium 138 mmol/L (136-145); Total Bilirubin 0.2 mg/dL (0.15-1.2); Total Iron Binding Capacity 299 mcg/dl; Total Protein 6.8 g/dL (6.6-8.7); Unsaturated Iron Binding 210 ug/dL (112-347)
== END 2023-03-26 23:59 | disposition home or self-care (01) ==
PROVIDERS: Nurse Practitioner Family; PCP Family Medicine; Visit Provider Internal Medicine Medical Oncology
DX: D50.8 Other iron deficiency anemias (principal); D64.9 Anemia, unspecified; D72.829 Elevated white blood cell count, unspecified; I10 Essential (primary) hypertension; E78.5 Hyperlipidemia, unspecified; E11.9 Type 2 diabetes mellitus without complications
CPT/HCPCS: 36415; 80053; 82728; 83540; 83550; 85025

== ENCOUNTER → 2023-08-31 11:35 | Outpatient (BNVA) | payer BC, SELFPAY | PROVIDERS: PCP Family Medicine; Visit Provider Emergency Medicine | DX: R05.9 Cough, unspecified (principal) | CPT/HCPCS: 87426 ==

== ENCOUNTER 2024-05-05 07:59 | Outpatient (CLI) | payer BC, SELFPAY ==
--- NOTE | 2024-05-05 08:02 | MM_ITS ---
WS: [id number] BILATERAL SCREENING DIGITAL TOMOSYNTHESIS MAMMOGRAM WITH CAD HISTORY: SCREENING COMPARISON: 02/04/2022, 03/03/2023 Bilateral CC and MLO views with tomosynthesis and synthetic mammography submitted. Computer aided detection analyzed. Breast composition: The breasts are heterogeneously dense, which may obscure small masses. No suspicious masses, microcalcifications or architectural distortion. Reidentified are 2 adjacent ovoid high density masses in the RIGHT breast near 1-2 o'clock. These masses have not changed in size since 02/04/2022. No new mass or distortion. MM/MM scr tomosynthesis [id number] IMPRESSION: BI-RADS: 2 - Benign FOLLOW UP: 1 Year Follow-up
== END 2024-05-05 08:00 | disposition home or self-care (01) ==
LOC: RAD 08:00
PROVIDERS: PCP Family Medicine; Visit Provider Family Medicine
DX: Z12.31 Encounter for screening mammogram for malignant neoplasm of breast (principal); R92.333 Mammographic heterogeneous density, bilateral breasts; N63.12 Unspecified lump in the right breast, upper inner quadrant
CPT/HCPCS: 77063; 77067

== ENCOUNTER → 2024-05-12 07:45 | Outpatient (BNVA) | payer BC, SELFPAY | PROVIDERS: PCP Family Medicine; Visit Provider Podiatrist Foot & Ankle Surgery | DX: M79.672 Pain in left foot (principal); M21.621 Bunionette of right foot; M21.622 Bunionette of left foot | CPT/HCPCS: 73630 ==